=== PATIENT | male | born 1990 | race Caucasian/White ===

== ENCOUNTER 2018-03-27 02:54 | Emergency (ER) | payer OTHER ==
[2018-03-27 03:23] VITALS: BP 116/93; PULSE 79; TEMP 97.1; BMI 30.7
[2018-03-27] MEDS ORDERED: IBUPROFEN 600 MG TABLET (FP) PO ONE ×2 (03:25→03:35)
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
== END 2018-03-27 04:10 | disposition home or self-care (01) ==
LOC: JER 02:54
DX: S50.02XA Contusion of left elbow, initial encounter (principal); Y35.811A Legal intervention involving manhandling, law enforcement official injured, initial encounter; W18.39XA Other fall on same level, initial encounter; Y93.89 Activity, other specified; Y92.89 Other specified places as the place of occurrence of the external cause; Y99.0 Civilian activity done for income or pay
CPT/HCPCS: 73070-TC-LT-FY; 99283-25

== ENCOUNTER 2018-04-08 04:05 | Emergency (ER) | payer OTHER ==
[2018-04-08 04:26] VITALS: BP 145/97; PULSE 96; TEMP 97.7; BMI 30.7
[2018-04-08] MEDS ORDERED: IBUPROFEN 400 MG TABLET (FP) PO ONE ×2 (04:36→04:44)
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
== END 2018-04-08 05:28 | disposition home or self-care (01) ==
LOC: JER 04:05
DX: M25.562 Pain in left knee (principal); S89.92XA Unspecified injury of left lower leg, initial encounter; X58.XXXA Exposure to other specified factors, initial encounter; Y93.89 Activity, other specified; Y92.9 Unspecified place or not applicable; F17.210 Nicotine dependence, cigarettes, uncomplicated
CPT/HCPCS: 73562-TC-LT-FY; 99281-25

== ENCOUNTER 2019-07-11 21:27 | Emergency (ER) | payer OTHER ==
[2019-07-11 21:36] VITALS: BP 153/83; PULSE 93; TEMP 98.1; BMI 30.1
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
== END 2019-07-11 21:55 | disposition home or self-care (01) ==
LOC: JER 21:27
DX: S80.01XA Contusion of right knee, initial encounter (principal); W18.39XA Other fall on same level, initial encounter; Y35.811A Legal intervention involving manhandling, law enforcement official injured, initial encounter; Y93.89 Activity, other specified; Y92.89 Other specified places as the place of occurrence of the external cause; Y99.0 Civilian activity done for income or pay
CPT/HCPCS: 99283-25

== ENCOUNTER 2019-12-02 19:13 | Emergency (ER) | payer OTHER ==
[2019-12-02 19:23] VITALS: BP 160/87; PULSE 86; TEMP 98.7; BMI 35.9
[2019-12-02] MEDS ORDERED: ACETAMINOPHEN 325 MG TABLET (FP) PO ONE (19:32)
[2019-12-02] MEDS ORDERED: ACETAMINOPHEN 325 MG TABLET (FP) ONE (19:41)
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
== END 2019-12-02 20:19 | disposition home or self-care (01) ==
LOC: FER 19:13
DX: R51 Headache (principal)
CPT/HCPCS: 99283-25

== ENCOUNTER 2020-05-30 22:58 | Emergency (ER) | payer OTHER ==
[2020-05-30 23:04] VITALS: BP 151/97; PULSE 89; TEMP 98.9; BMI 36.0
== END 2020-05-30 23:21 | disposition home or self-care (01) ==
LOC: FER 22:58
DX: S80.01XA Contusion of right knee, initial encounter (principal)
CPT/HCPCS: 99282-25

== ENCOUNTER 2020-10-13 22:11 | Emergency (ER) | payer OTHER ==
[2020-10-13 22:31] VITALS: BP 145/92; PULSE 86; TEMP 99; BMI 28.7
[2020-10-13] MEDS ORDERED: IBUPROFEN 600 MG TABLET (FP) PO ONE ×2 (22:33→22:37)
== END 2020-10-13 22:41 | disposition home or self-care (01) ==
LOC: FER 22:11
DX: S39.012A Strain of muscle, fascia and tendon of lower back, initial encounter (principal); X50.9XXA Other and unspecified overexertion or strenuous movements or postures, initial encounter
CPT/HCPCS: 99283-25

== ENCOUNTER 2020-11-20 22:31 | Emergency (ER) | payer OTHER ==
[2020-11-20 22:47] VITALS: BP 148/92; PULSE 81; TEMP 98.7; BMI 29.4
== END 2020-11-21 00:53 | disposition home or self-care (01) ==
LOC: FER 22:31
DX: S63.642A Sprain of metacarpophalangeal joint of left thumb, initial encounter (principal); S63.502A Unspecified sprain of left wrist, initial encounter
CPT/HCPCS: 73110-TC-LT-FY; 73130-TC-LT-FY; 99285-25

== ENCOUNTER 2022-08-29 22:52 | Emergency (ER) | payer OTHER ==
[2022-08-29 22:58] VITALS: BP 147/96; PULSE 84; RESP 16; TEMP 98.9; BMI 29.4
[2022-08-30] MEDS ORDERED: IBUPROFEN 600 MG TABLET (FP) PO ONE ×2 (00:20→00:22)
== END 2022-08-30 00:28 | disposition home or self-care (01) ==
LOC: FER 22:52
DX: S54.02XA Injury of ulnar nerve at forearm level, left arm, initial encounter (principal); M25.552 Pain in left hip; W22.8XXA Striking against or struck by other objects, initial encounter
CPT/HCPCS: 73070-TC-LT-FY; 99283-25

== ENCOUNTER 2022-12-25 18:47 | Emergency (ER) | payer OTHER ==
[2022-12-25 19:05] VITALS: BP 148/83; PULSE 86; RESP 18; TEMP 97.8; BMI 28.7
[2022-12-25] MEDS ORDERED: HIV POST EXPOSURE PROPHYLAXIS KIT NR ONE (19:34)
[2022-12-25] MEDS ORDERED: HIV POST EXPOSURE PROPHYLAXIS KIT PO ONE (20:37)
== END 2022-12-25 20:25 | disposition home or self-care (01) ==
LOC: FER 18:47
DX: S60.512A Abrasion of left hand, initial encounter (principal); S60.511A Abrasion of right hand, initial encounter; Z77.21 Contact with and (suspected) exposure to potentially hazardous body fluids; W25.XXXA Contact with sharp glass, initial encounter
CPT/HCPCS: 36415; 87340; 99283-25

== ENCOUNTER 2022-12-26 23:47 | Emergency (ER) | payer OTHER ==
[2022-12-26 23:55] VITALS: RESP 16; BMI 28.7
[2022-12-27 00:12] VITALS: BP 135/86; PULSE 60; TEMP 98.5
[2022-12-27 05:49] LABS: HIV INTERPRETATION NEGATIVE (NEGATIVE)
== END 2022-12-27 00:45 | disposition home or self-care (01) ==
LOC: FER 23:47
DX: Z77.21 Contact with and (suspected) exposure to potentially hazardous body fluids (principal)
CPT/HCPCS: 36415; 86704; 86803; 87340; 87389; 87517; 99283-25

== ENCOUNTER 2023-05-18 00:10 | Emergency (ER) | payer OTHER ==
[2023-05-18 00:16] VITALS: BP 160/103; PULSE 76; RESP 16; TEMP 98.3; BMI 28.5
== END 2023-05-18 02:00 | disposition home or self-care (01) ==
LOC: FER 00:10
DX: S60.511A Abrasion of right hand, initial encounter (principal); S60.512A Abrasion of left hand, initial encounter; M79.641 Pain in right hand; M79.642 Pain in left hand; X58.XXXA Exposure to other specified factors, initial encounter
CPT/HCPCS: 99282-25